=== PATIENT | male | born 1985 | race Caucasian/White ===

== ENCOUNTER 2018-08-31 03:32 | Emergency (ER) | payer OTHER ==
[2018-08-31 03:36] VITALS: RESP 16; TEMP 98.5
--- NOTE | 2018-08-31 04:16 | ED ---
Back Pain HPI - General Chief Complaint: Back Pain/Injury Stated Complaint: Flank pain Time Seen by Provider: 08/31/18 04:15 Source: patient Limitations: no limitations - History of Present Illness Initial Comments: Is a 33-year-old male who presents the emergency department for evaluation of sudden onset of right-sided flank pain patient reports that he was in his usual state of health throughout the day yesterday he did do some snow shoveling. He reports he went to bed and woke around 2 AM with sudden onset of right-sided flank pain. He reports feeling as though he needs to urinate but is unable to do so. Patient is no history of kidney stones. Patient denies any associated symptoms including fevers, chills, nausea, vomiting or change in bowel habits. - Related Data Previous Rx's Medication Instructions Recorded HYDROcodone/APAP 5-325MG [[place] 5] 1 each PO Q6HR PRN #8 tab 08/31/18 Ibuprofen [Motrin] 800 mg PO TID #60 tab 08/31/18 Methocarbamol [Robaxin-750] 750 mg PO TID #30 tablet 08/31/18 Ondansetron Odt [Zofran Odt] 4 mg PO Q8HR PRN #12 tab 08/31/18 Tamsulosin HCl [Flomax] 0.4 mg PO DAILY #7 capsule 08/31/18 Allergies Allergy/AdvReac Type Severity Reaction Status Date / Time No Known Allergies Allergy Verified 08/31/18 03:36 Review of Systems ROS Statement: Those systems with pertinent positive or pertinent negative responses have been documented in the HPI. ROS Other: All systems not noted in ROS Statement are negative. Past Medical History Past Medical History: No Reported History History of Any Multi-Drug Resistant Organisms: None Reported Additional Past Surgical History / Comment(s): ORIF right leg. Past Psychological History: No Psychological Hx Reported Smoking Status: Current every day smoker Past Alcohol Use History: Occasional Past Drug Use History: Marijuana General Exam - General Exam Comments Initial Comments: Physical Exam GENERAL: Patient is well-developed and well-nourished. Patient is nontoxic and well-hydrated and is in moderate distress due to discomfort HENT: Normocephalic, Atraumatic. EYES: PERRL, EOMI PULMONARY: Unlabored respirations. No audible rales rhonchi or wheezing was noted. CARDIOVASCULAR: There is a regular rate and rhythm without any murmurs gallops or rubs. ABDOMEN: Soft and nontender with normal bowel sounds. Right-sided flank pain SKIN: Skin is clear with no lesions or rashes and otherwise unremarkable. : Deferred NEUROLOGIC: Patient is alert and oriented x3. Moving all extremities spontaneously MUSCULOSKELETAL: Normal extremities with adequate strength and full range of motion. No lower extremity swelling or edema. No calf tenderness. PSYCHIATRIC: Normal psychiatric evaluation. Limitations: no limitations Limitations: no limitations Course Vital Signs 08/31/18 08/31/18 03:33 05:42 Temperature 98.5 F Pulse Rate 87 70 Respiratory 16 16 Rate Blood Pressure 143/83 120/81 O2 Sat by Pulse 97 97 Oximetry Medical Decision Making - Medical Decision Making The patient was seen and evaluated history was obtained from patient Patient with right-sided flank pain for 2 hours duration no history of kidney stones assigned patient with urinary urgency and hesitancy next I have a high suspicion for kidney stone labs and imaging were ordered IV fluids and Toradol ordered Patient was reevaluated after Toradol he was sleeping. Computed tomography scan does reveal a small UVJ stone results were discussed with the patient and girlfriend at bedside. Patient will be discharged with Zofran, [place] and Flomax. All questions pertaining care were answered return parameters were discussed patient was discharged home in stable condition. - Lab Data Result diagrams: 08/31/18 04:33 08/31/18 04:33 Lab Results 08/31/18 08/31/18 Range/Units 04:33 04:33 WBC 5.5 (3.8-10.6) k/uL RBC 4.41 (4.30-5.90) m/uL Hgb 14.8 (13.0-17.5) gm/dL Hct 45.5 (39.0-53.0) % MCV 103.2 H (80.0-100.0) fL MCH 33.6 (25.0-35.0) pg MCHC 32.6 (31.0-37.0) g/dL RDW 13.8 (11.5-15.5) % Plt Count 327 (150-450) k/uL Neutrophils % 64 % Lymphocytes % 22 % Monocytes % 5 % Eosinophils % 6 % Basophils % 1 % Neutrophils # 3.5 (1.3-7.7) k/uL Lymphocytes # 1.2 (1.0-4.8) k/uL Monocytes # 0.3 (0-1.0) k/uL Eosinophils # 0.3 (0-0.7) k/uL Basophils # 0.0 (0-0.2) k/uL Macrocytosis Slight Sodium 140 (137-145) mmol/L Potassium 4.4 (3.5-5.1) mmol/L Chloride 106 (98-107) mmol/L Carbon Dioxide 26 (22-30) mmol/L Anion Gap 8 mmol/L BUN 13 (9-20) mg/dL Creatinine 0.69 (0.66-1.25) mg/dL Est GFR (CKD-EPI)AfAm >90 (>60 ml/min/1.73 sqM) Est GFR (CKD-EPI)NonAf >90 (>60 ml/min/1.73 sqM) Glucose 106 H (74-99) mg/dL Calcium 9.1 (8.4-10.2) mg/dL Total Bilirubin 0.5 (0.2-1.3) mg/dL AST 52 (17-59) U/L ALT 57 (21-72) U/L Alkaline Phosphatase 60 (38-126) U/L Total Protein 6.6 (6.3-8.2) g/dL Albumin 4.0 (3.5-5.0) g/dL Disposition Clinical Impression: Kidney stone Disposition: HOME SELF-CARE Instructions (If sedation given, give patient instructions): Kidney Stones (ED) Prescriptions: HYDROcodone/APAP 5-325MG [[place] 5] 1 each PO Q6HR PRN #8 tab PRN Reason: Pain Ibuprofen [Motrin] 800 mg PO TID #60 tab Methocarbamol [Robaxin-750] 750 mg PO TID #30 tablet Ondansetron Odt [Zofran Odt] 4 mg PO Q8HR PRN #12 tab PRN Reason: Nausea Tamsulosin HCl [Flomax] 0.4 mg PO DAILY #7 capsule Is patient prescribed a controlled substance at d/c from ED?: Yes If prescribed controlled substance>3 days was MAPS reviewed?: Prescribed <3 Days Referrals: None,Stated [Primary Care Provider] - 1-2 days Chico Dalton MD [STAFF PHYSICIAN] - 1-2 days
[2018-08-31] MEDS ORDERED: KETOROLAC 30 MG/ML 1 ML VIAL IVP ONE (04:20)
[2018-08-31] MEDS ORDERED: SODIUM CHLORIDE 0.9% 1,000 ML IV ONE (04:20)
[2018-08-31 04:48] LABS: Basophils % (A) 1 %; Eosinophils # (A) 0.3 k/uL (0-0.7); Eosinophils % (A) 6 %; HCT 45.5 % (39.0-53.0); HGB 14.8 gm/dL (13.0-17.5); Lymphocytes # (A) 1.2 k/uL (1.0-4.8); Lymphocytes % (A) 22 %; MCH 33.6 pg (25.0-35.0); MCHC 32.6 g/dL (31.0-37.0); MCV 103.2 fL (80.0-100.0); Macrocytosis Slight; Mean Platelet Volume 7.9; Monocytes # (A) 0.3 k/uL (0-1.0); Monocytes % (A) 5 %; Neutrophils # (A) 3.5 k/uL (1.3-7.7); Neutrophils % (A) 64 %; Platelet Count 327 k/uL (150-450); RBC 4.41 m/uL (4.30-5.90); RDW 13.8 % (11.5-15.5); WBC 5.5 k/uL (3.8-10.6)
[2018-08-31 04:59] LABS: ALT 57 U/L (21-72); AST 52 U/L (17-59); Alkaline Phosphatase 60 U/L (38-126); Anion Gap 8 mmol/L; Blood Urea Nitrogen 13 mg/dL (9-20); Calcium 9.1 mg/dL (8.4-10.2); Carbon Dioxide 26 mmol/L (22-30); Chloride 106 mmol/L (98-107); Glucose 106 mg/dL (74-99); Potassium 4.4 mmol/L (3.5-5.1); Sodium 140 mmol/L (137-145); Total Bilirubin 0.5 mg/dL (0.2-1.3); Total Protein 6.6 g/dL (6.3-8.2)
--- NOTE | 2018-08-31 05:09 | CT ---
EXAMINATION TYPE: CT renal stones wo con DATE OF EXAM: 08/31/2018 HISTORY: LEFT FLANK PAIN, R/O STONES CT DLP: 395.30 mGycm. Automated Exposure Control for Dose Reduction was Utilized. TECHNIQUE: CT scan of the abdomen and pelvis is performed without oral or IV contrast. COMPARISON: None FINDINGS: Lung bases are clear. There is no pleural effusion. Heart size is normal. Liver spleen pancreas gallbladder appear normal. Bile ducts are not dilated. Stomach appears normal. There is no adrenal mass. Kidneys have normal size. There is large right renal pelvis. There are mult iple bilateral renal calcifications that measure up to 4 mm. There is right-sided hydroureter. There is a 2 mm calcification at the right ureterovesical junction. Left kidney shows no sign of obstructio n. There is no retroperitoneal adenopathy. There is no free fluid in the pelvis. There is no inguinal hernia. There is no intestinal wall thicke ned. There are no dilated loops. There is no mesenteric edema. There is no sign of free air. Appendi x appears normal. IMPRESSION: Numerous bilateral renal calculi. Right-sided hydronephrosis and hydroureter with probably a tiny obs tructing calculus at the right ureterovesical junction. Normal appendix. No evidence of obstruction on the left side.
[2018-08-31 05:43] VITALS: BP 120/81; PULSE 70
== END 2018-08-31 05:43 | disposition home or self-care (01) ==
LOC: EC 03:32
DX: N20.0 Calculus of kidney (principal); F17.200 Nicotine dependence, unspecified, uncomplicated
CPT/HCPCS: 36415; 80053; 85025; 74150; 99284; 96374; 96361; J1885